=== PATIENT | male | born 2000 ===

== ENCOUNTER 2025-04-24 16:37 | Emergency (ER) | payer OTHER ==
[~2025-04-24] VITALS: Ht 167.6 cm; Wt 80.3 kg
== END 2025-04-24 18:42 | disposition home or self-care (01) ==
LOC: ER 16:37
DX: S66.911A Strain of unspecified muscle, fascia and tendon at wrist and hand level, right hand, initial encounter (principal); V86.56XA Driver of dirt bike or motor/cross bike injured in nontraffic accident, initial encounter
CPT/HCPCS: 73110; 99283-25